=== PATIENT | female | born 1960 | race Caucasian/White ===

== ENCOUNTER 2020-09-10 15:09 | Emergency (ER) | payer OTHER ==
[~2020-09-10] VITALS: Ht 160 cm; Wt 74.8 kg
[2020-09-10 15:27] VITALS: BP 194/107
--- NOTE | 2020-09-10 15:27 | NUR ---
PT AMBULATED TO ER BED 4 FOR TRIAGE BEDSIDE.
--- NOTE | 2020-09-10 15:33 | NUR ---
PT AMBULATED TO RESTROOM. STEADY GAIT
--- NOTE | 2020-09-10 15:34 | NUR ---
PT AMBULATED TO RESTROOM FOR UA COLLECTION.
--- NOTE | 2020-09-10 15:44 | NUR ---
59 Y/O FEMALE REFERRED FROM URGENT CARE X2HRS FOR A SBP >200. PT IS ANXIOUS, DIAPHORETIC AND STATES SHE HAS THE CHILLS BUT FEELS FLUSHED. 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 PT WAS COVID + 07/07/20. PT STATED THAT HER BP WAS 151/100 AT HOME SO WENT TO URGENT CARE, HER NORMAL BP IS 120/80. PT STATES SHE FEELS "LIKE ITS COLD GOING DOWN WITH HOT FLASHES". PT STATES SHE FEELS VERY ANXIOUS AND PARANOID. SHE NOTED THAT SHE GAINED 25 LBS FROM 10/2019. PT DENIES SOB/N/V. PT LAYING IN BED, BED IN LOWEST POSITION, BRAKES LOCKED WITH X1 SIDERAIL UP. PMH: ANXIETY, HLD, GERD, HYPOTHYROIDISM. RX: AMITRIPTYLINE, LEVOTHYROXINE, ATORVASTATIN, AND OMEPRAZOLE. ALLERGIES TO LATEX AND CODEINE
--- NOTE | 2020-09-10 15:58 | NUR ---
DOUGLAS RN AT BEDSIDE FOR EKG
--- NOTE | 2020-09-10 16:11 | NUR ---
PT BP 174/95 AND HR 114, SHANNON LAMAR MADE AWARE
[2020-09-10] MEDS ORDERED: lisinopriL 20 MG TAB PO ONE (16:20)
[2020-09-10] MEDS ORDERED: CRUSHER, PILL MC ONE (16:25)
[2020-09-10 16:57] VITALS: BP 194/107
--- NOTE | 2020-09-10 16:58 | NUR ---
Patient discharged with v/s stable. Written and verbal after care instructions given and explained. Patient alert, oriented and verbalized understanding of instructions. Ambulatory with steady gait. All questions addressed prior to discharge. ID band removed. Patient advised to follow up with PMD. Rx of LISINOPRIL 10 MG TAB PO DAILY given. Patient educated on indication of medication including possible reaction and side effects. Opportunity to ask questions provided and answered.
== END 2020-09-10 16:58 | disposition home or self-care (01) ==
LOC: MED 15:09
DX: I10 Essential (primary) hypertension (principal); Z88.5 Allergy status to narcotic agent; Z91.040 Latex allergy status
CPT/HCPCS: 81002; 93005; 99283